=== PATIENT | female | born 1960 | race Caucasian/White ===

== ENCOUNTER → 2020-07-11 | Outpatient (CLI) | payer MEDICARE, OTHER | LOC: RAD 17:22 | DX: M25.552 Pain in left hip (principal); M79.652 Pain in left thigh | CPT/HCPCS: 73502; 73552 ==

== ENCOUNTER → 2020-07-28 | Outpatient (CLI) | payer MEDICARE, OTHER | LOC: HEART 5 07:58 | DX: I25.10 Atherosclerotic heart disease of native coronary artery without angina pectoris (principal); R07.9 Chest pain, unspecified; R94.39 Abnormal result of other cardiovascular function study | CPT/HCPCS: 78452; A9502; J2785 ==

== ENCOUNTER 2020-09-21 09:03 | Emergency (ER) | payer MEDICARE, OTHER ==
[2020-09-21 09:53] LABS: HEMOGLOBIN 12.6 gm/dl (12.3-15.3); RED BLOOD COUNT 3.97 M/UL (4.00-5.10); WHITE BLOOD COUNT 6.4 K/UL (4.5-11.0)
[2020-09-21 10:32] LABS: BUN/CREATININE RATIO 28 (0-10)
[2020-09-22 09:14] LABS: HBSAG SCREEN Negative (Negative); HEP A AB, IGM Negative (Negative); HEP B CORE AB, IGM Negative (Negative); HEP C VIRUS AB <0.1 (0.0-0.9)
== END 2020-09-21 13:01 | disposition home or self-care (01) ==
LOC: ER1 09:03
PROVIDERS: Emergency Medicine
DX: S06.0X9A Concussion with loss of consciousness of unspecified duration, initial encounter (principal); D69.6 Thrombocytopenia, unspecified; R16.2 Hepatomegaly with splenomegaly, not elsewhere classified; E11.9 Type 2 diabetes mellitus without complications; I10 Essential (primary) hypertension; K21.9 Gastro-esophageal reflux disease without esophagitis; I25.10 Atherosclerotic heart disease of native coronary artery without angina pectoris; Z95.1 Presence of aortocoronary bypass graft; Z90.49 Acquired absence of other specified parts of digestive tract; Z90.710 Acquired absence of both cervix and uterus; F17.200 Nicotine dependence, unspecified, uncomplicated; W19.XXXA Unspecified fall, initial encounter
CPT/HCPCS: 70450; 71045; 80053; 80074; 81001; 82550; 82553; 83735; 83874; 84484; 85025; 87086; 93005; 99284

== ENCOUNTER 2020-11-29 12:01 | Inpatient (IN) | payer MEDICARE ==
[~2020-11-29] VITALS: Ht 160 cm; Wt 92.5 kg
[~2020-11-29 12:01] MED LIST: HYDROCODON-ACE1 EAC4 PO; VALACYCLOVIR1000 MG PO
[2020-11-29 14:55] LABS: HEMOGLOBIN 12.7 gm/dl (12.3-15.3); RED BLOOD COUNT 3.77 M/UL (4.00-5.10); WHITE BLOOD COUNT 11.4 K/UL (4.5-11.0)
[2020-11-29 15:37] LABS: BUN/CREATININE RATIO 23 (0-10)
[2020-11-30 04:08] LABS: HEMOGLOBIN 11.8 gm/dl (12.3-15.3); RED BLOOD COUNT 3.57 M/UL (4.00-5.10); WHITE BLOOD COUNT 11.3 K/UL (4.5-11.0)
[2020-11-30 04:26] LABS: BUN/CREATININE RATIO 23 (0-10)
[2020-11-30] MEDS ORDERED: NITROSTAT0.4 MG SL (11:46)
[2020-11-30] MEDS ORDERED: METFORMIN HCL500 M2 PO (11:46)
[2020-11-30] MEDS ORDERED: GLYBURIDE5 MG PO (11:46)
[2020-11-30] MEDS ORDERED: FERROUS SULFAT325 M2 PO (11:47)
[2020-11-30] MEDS ORDERED: AMLODIPINE BESYL5 MG PO (11:47)
[2020-11-30] MEDS ORDERED: BACLOFEN10 MG PO (11:47)
[2020-11-30] MEDS ORDERED: GABAPENTIN100 MG PO (11:48)
[2020-11-30] MEDS ORDERED: PROTONIX40 MG PO (11:49)
[2020-11-30] MEDS ORDERED: MELOXICAM15 MG PO (11:49)
[2020-11-30] MEDS ORDERED: PRAVASTATIN SOD80 MG PO (11:49)
[2020-11-30] MEDS ORDERED: ABILIFY2 MG PO (11:50)
[2020-11-30] MEDS ORDERED: MIRTAZAPINE30 MG PO (11:52)
[2020-11-30] MEDS ORDERED: BUSPIRONE HCL5 MG PO (11:52)
[2020-11-30] MEDS ORDERED: FUROSEMIDE20 MG PO (11:56)
[2020-11-30] MEDS ORDERED: VENLAFAXINE HC150 MG PO (11:56)
[2020-11-30] MEDS ORDERED: IRBESARTAN300 MG PO (11:57)
[2020-11-30] MEDS ORDERED: ISOSORBIDE MONO30 MG PO (11:57)
[2020-11-30] MEDS ORDERED: METOPROLOL TART25 MG PO (11:58)
[2020-11-30] MEDS ORDERED: POTASSIUM CHLO10 MEQ PO (11:58)
[2020-11-30] MEDS ORDERED: DONEPEZIL HCL5 MG PO (11:59)
[2020-11-30] MEDS ORDERED: NOVOLOG FL100 UNIT/1 SC (12:00)
[2020-11-30] MEDS ORDERED: NOVOLIN N100 UNIT/2 SC (12:02)
[2020-11-30] MEDS ORDERED: DAILY VALUE1 EACH PO (12:02)
[2020-11-30] MEDS ORDERED: ASPIRIN EC81 MG PO (12:03)
[2020-12-01 07:37] LABS: RED BLOOD COUNT 3.71 M/UL (4.00-5.10); WHITE BLOOD COUNT 13.2 K/UL (4.5-11.0)
[2020-12-01 07:57] LABS: BUN/CREATININE RATIO 17 (0-10)
[2020-12-01 15:53] LABS: BUN/CREATININE RATIO 18 (0-10)
[2020-12-02 04:28] LABS: RED BLOOD COUNT 3.36 M/UL (4.00-5.10)
[2020-12-02 04:37] LABS: WHITE BLOOD COUNT 16.7 K/UL (4.5-11.0)
[2020-12-03 08:30] LABS: RED BLOOD COUNT 3.46 M/UL (4.00-5.10)
[2020-12-03 08:41] LABS: WHITE BLOOD COUNT 9.5 K/UL (4.5-11.0)
[2020-12-03 08:51] LABS: BUN/CREATININE RATIO 28 (0-10)
[2020-12-04 06:39] LABS: HEMOGLOBIN 10.2 gm/dl (12.3-15.3); RED BLOOD COUNT 3.27 M/UL (4.00-5.10); WHITE BLOOD COUNT 10.8 K/UL (4.5-11.0)
[2020-12-05 06:30] LABS: HEMOGLOBIN 10.5 gm/dl (12.3-15.3); RED BLOOD COUNT 3.35 M/UL (4.00-5.10); WHITE BLOOD COUNT 9.3 K/UL (4.5-11.0)
[2020-12-06 08:26] LABS: HEMOGLOBIN 9.9 gm/dl (12.3-15.3); RED BLOOD COUNT 3.2 M/UL (4.00-5.10)
[2020-12-06 08:28] LABS: WHITE BLOOD COUNT 5.8 K/UL (4.5-11.0)
[2020-12-07 04:45] LABS: HEMOGLOBIN 9.4 gm/dl (12.3-15.3); RED BLOOD COUNT 2.99 M/UL (4.00-5.10); WHITE BLOOD COUNT 5.6 K/UL (4.5-11.0)
[2020-12-07 05:11] LABS: HBSAG SCREEN Negative (Negative); HEP A AB, IGM Negative (Negative); HEP B CORE AB, IGM Negative (Negative); HEP C VIRUS AB 0.1 (0.0-0.9)
--- NOTE | 2020-12-07 15:48 | NUR ---
[id number] Serra regarding IAN Drain to surgical wound to left arm. Stated to leave drain in since it was continuing to have drainage.
[2020-12-08 07:59] LABS: HEMOGLOBIN 9.2 gm/dl (12.3-15.3); RED BLOOD COUNT 2.93 M/UL (4.00-5.10); WHITE BLOOD COUNT 4.2 K/UL (4.5-11.0)
--- NOTE | 2020-12-09 06:33 | NUR ---
Pt found with a new rapid advancing petechiea. Was not found on pt the night before. Notified Dr. Ramirez and ask him to come look at her. When he finally answered back he said to just hold all blood thinners and aspirin. Pt has an area covering bilateral buttocks, bilateral feet and legs. Will report to dayshift and ask that the hospitalist assess the areas today. Will hold all blood thinner or aspirin.
[2020-12-09 07:00] LABS: HEMOGLOBIN 9.4 gm/dl (12.3-15.3); RED BLOOD COUNT 2.96 M/UL (4.00-5.10); WHITE BLOOD COUNT 4.2 K/UL (4.5-11.0)
[2020-12-10 06:32] LABS: HEMOGLOBIN 9.7 gm/dl (12.3-15.3); RED BLOOD COUNT 3.04 M/UL (4.00-5.10)
[2020-12-10 06:36] LABS: WHITE BLOOD COUNT 7.3 K/UL (4.5-11.0)
[2020-12-11 06:36] LABS: HEMOGLOBIN 8.7 gm/dl (12.3-15.3); RED BLOOD COUNT 2.78 M/UL (4.00-5.10); WHITE BLOOD COUNT 7.9 K/UL (4.5-11.0)
[2020-12-11 09:08] LABS: ANTISTREPTOLYSIN O AB 302.9 IU/mL (0.0-200.0); COMPLEMENT C3, SERUM 94 mg/dL (82-167); COMPLEMENT C4, SERUM 9 mg/dL (12-38)
--- NOTE | 2020-12-11 15:42 | NUR ---
SPOKE WITH PHARMACIST ABOUT PATIENT VANC ORDER, LEVEL WAS 19.5 BUT WILL HOLD TODAY AND CHECK TOMORROW.
--- NOTE | 2020-12-11 23:56 | NUR ---
PT STATES THAT SHE IS LEAVING, SHE HAS ALL HER BELONGINGS PACKED, AND STATES SHE HAS CALLED HER BROTHER IN LAW TO COME GET HER. I TRY TALKING WITH PT TO STAY TILL IN THE MORNING AND SHE STATES NOTHING WILL KEEP HER HERE. IV WAS D/C BEFORE LEAVING PT TOLERATED WELL. NOTIFIED HOUSE AND DR HUI OF ABOVE. PT WAS ALSO NOTIFIED THAT THE INSURANCE MAY NOT PAY BILL IF SHE LEAVES AMA. PT STATES SHE DIDNT CARE SHE HAD INHERITED 300,000. PT SIGNED AMA FORM. PT WAS GIVEN A MASK, AND PT WAS PLACED IN WHEELCHAIR BY TECH AND TOOK TO MEET RIDE.
[2020-12-12 00:09] LABS: CREATININE, URINE 113.7 mg/dL (Not Estab.)
[2020-12-12 14:10] LABS: ANTI-DSDNA ANTIBODIES <1 IU/mL (0-9)
[2020-12-12 16:10] LABS: A/G RATIO 0.5 (0.7-1.7); ALBUMIN 2.1 g/dL (2.9-4.4); ALPHA-1-GLOBULIN 0.3 g/dL (0.0-0.4); ALPHA-2-GLOBULIN 0.6 g/dL (0.4-1.0); BETA GLOBULIN 1.8 g/dL (0.7-1.3); GAMMA GLOBULIN 2.1 g/dL (0.4-1.8); GLOBULIN, TOTAL 4.8 g/dL (2.2-3.9); IMMUNOGLOBULIN A, QN, SERUM 1435 mg/dL (87-352); IMMUNOGLOBULIN G, QN, SERUM 2092 mg/dL (586-1602); IMMUNOGLOBULIN M, QN, SERUM 93 mg/dL (26-217); M-SPIKE 0.7 g/dL (Not Observed); PROTEIN, TOTAL, SERUM 6.9 g/dL (6.0-8.5)
[2020-12-13 13:14] LABS: ANTIHISTONE ANTIBODIES 0.9 Units (0.0-0.9)
[2020-12-14 08:13] LABS: ANTIMYELOPEROXIDASE (MPO) ABS <9.0 U/mL (0.0-9.0); ANTIPROTEINASE 3 (PR-3) ABS 12.5 U/mL (0.0-3.5); ATYPICAL PANCA >1:640 titer (Neg:<1:20); CYTOPLASMIC (C-ANCA) <1:20 titer (Neg:<1:20); PERINUCLEAR (P-ANCA) <1:20 titer (Neg:<1:20)
== END 2020-12-11 22:48 | disposition left against medical advice (07) | DRG 853 ==
LOC: ER1 12:01 → CDU 17:27 → MED SURG 4 17:27
PROVIDERS: Internal Medicine; Internal Medicine Nephrology; Physician Assistant; Physician Assistant Medical; Surgery; ADMIT Internal Medicine
PROC: 0H9CXZZ Drainage of Left Upper Arm Skin, External Approach (ICD-10-PCS; 2020-12-01)
PROC: B24BZZ4 Ultrasonography of Heart with Aorta, Transesophageal (ICD-10-PCS; 2020-12-04)
PROC: 0J960ZZ Drainage of Chest Subcutaneous Tissue and Fascia, Open Approach (ICD-10-PCS; principal; 2020-12-09 07:30)
PROC: 0JB60ZZ Excision of Chest Subcutaneous Tissue and Fascia, Open Approach (ICD-10-PCS; principal; 2020-12-09 07:30)
DX: A41.9 Sepsis, unspecified organism (principal); J18.9 Pneumonia, unspecified organism; Z20.822 Contact with and (suspected) exposure to COVID-19; G92 Toxic encephalopathy; L03.114 Cellulitis of left upper limb; N17.9 Acute kidney failure, unspecified; L02.414 Cutaneous abscess of left upper limb; E87.1 Hypo-osmolality and hyponatremia; E87.2 Acidosis; R65.20 Severe sepsis without septic shock; R22.2 Localized swelling, mass and lump, trunk; E11.9 Type 2 diabetes mellitus without complications; R23.3 Spontaneous ecchymoses; I10 Essential (primary) hypertension; E78.5 Hyperlipidemia, unspecified; F41.1 Generalized anxiety disorder; E86.0 Dehydration; E66.9 Obesity, unspecified; E80.6 Other disorders of bilirubin metabolism; I08.1 Rheumatic disorders of both mitral and tricuspid valves; F32.9 Major depressive disorder, single episode, unspecified; W18.39XA Other fall on same level, initial encounter; R29.6 Repeated falls; Z95.1 Presence of aortocoronary bypass graft; Z79.4 Long term (current) use of insulin; Z90.710 Acquired absence of both cervix and uterus; Z90.49 Acquired absence of other specified parts of digestive tract; Z82.49 Family history of ischemic heart disease and other diseases of the circulatory system; Z83.3 Family history of diabetes mellitus; Z88.2 Allergy status to sulfonamides; Z88.6 Allergy status to analgesic agent; Z88.1 Allergy status to other antibiotic agents; Z91.040 Latex allergy status; Z68.37 Body mass index [BMI] 37.0-37.9, adult
CPT/HCPCS: ECHO; 36415; 36600; 70450; 71045; 73030; 73060; 73201; 73220; 80048; 80053; 80074; 80202; 81001; 82043; 82140; 82436; 82533; 82570; 82607; 82784; 82803; 82962; 83036; 83520; 83605; 83735; 83880; 83883; 83935; 84133; 84155; 84156; 84165; 84295; 84300; 84439; 84443; 84484; 85025; 85027; 85610; 85652; 86038; 86060; 86140; 86160; 86225; 86256; 86334; 87040; 87070; 87077; 87186; 87205; 93005; 93306; 93971; 94760; 99283; 99285; A9577; J0690; J0692; J1100; J1170; J1650; J2001; J2250; J2370; J2405; J2704; J3010; J3370; J7030; J7070; J7120; P9047; Q9967; U0002

== ENCOUNTER → 2020-12-15 | Outpatient (CLI) | payer MEDICARE ==
[~2020-12-15] MED LIST changes: +ABILIFY2 MG PO; +AMLODIPINE BESYL5 MG PO; +ASPIRIN EC81 MG PO; +BACLOFEN10 MG PO; +BUSPIRONE HCL5 MG PO; +DAILY VALUE1 EACH PO; +DONEPEZIL HCL5 MG PO; +FERROUS SULFAT325 M2 PO; +FUROSEMIDE20 MG PO; +GABAPENTIN100 MG PO; +GLYBURIDE5 MG PO; +IRBESARTAN300 MG PO; +ISOSORBIDE MONO30 MG PO; +MELOXICAM15 MG PO; +METFORMIN HCL500 M2 PO; +METOPROLOL TART25 MG PO; +MIRTAZAPINE30 MG PO; +NITROSTAT0.4 MG SL; +NOVOLIN N100 UNIT/2 SC; +NOVOLOG FL100 UNIT/1 SC; +POTASSIUM CHLO10 MEQ PO; +PRAVASTATIN SOD80 MG PO; +PROTONIX40 MG PO; +VENLAFAXINE HC150 MG PO
== END ==
LOC: LAB 11:40
DX: R60.1 Generalized edema (principal)
CPT/HCPCS: 36415; 80053; 82140

== ENCOUNTER → 2021-02-01 | Outpatient (CLI) | payer MEDICARE | LOC: EXRD 01-16 08:30 | DX: R94.5 Abnormal results of liver function studies (principal); R93.2 Abnormal findings on diagnostic imaging of liver and biliary tract | CPT/HCPCS: 76705 ==

== ENCOUNTER → 2021-02-07 | Outpatient (CLI) | payer MEDICARE ==
[~2021-02-07] MED LIST changes: +DOXYCYCLINE HY100 M2 PO
== END ==
LOC: RAD 10:38
DX: M25.512 Pain in left shoulder (principal); M19.011 Primary osteoarthritis, right shoulder; M79.89 Other specified soft tissue disorders
CPT/HCPCS: 73030

== ENCOUNTER 2021-02-08 14:23 | Observation (INO) | payer MEDICARE ==
[~2021-02-08] VITALS: Ht 160 cm; Wt 82.1 kg
[~2021-02-08 14:23] MED LIST changes: -DOXYCYCLINE HY100 M2 PO
[2021-02-08 16:51] LABS: HEMOGLOBIN 12.2 gm/dl (12.3-15.3); RED BLOOD COUNT 3.83 M/UL (4.00-5.10); WHITE BLOOD COUNT 8.9 K/UL (4.5-11.0)
[2021-02-09 03:56] LABS: HEMOGLOBIN 11.6 gm/dl (12.3-15.3); RED BLOOD COUNT 3.68 M/UL (4.00-5.10); WHITE BLOOD COUNT 7.1 K/UL (4.5-11.0)
[2021-02-09] MEDS ORDERED: DOXYCYCLINE HY100 M2 PO (12:03)
== END 2021-02-09 13:00 | disposition home or self-care (01) ==
LOC: ER1 14:23 → CDU 23:23
PROVIDERS: Internal Medicine; Physician Assistant Medical; ADMIT Internal Medicine
DX: E11.628 Type 2 diabetes mellitus with other skin complications (principal); L02.414 Cutaneous abscess of left upper limb; E87.1 Hypo-osmolality and hyponatremia; E87.6 Hypokalemia; E11.65 Type 2 diabetes mellitus with hyperglycemia; I12.9 Hypertensive chronic kidney disease with stage 1 through stage 4 chronic kidney disease, or unspecified chronic kidney disease; E11.22 Type 2 diabetes mellitus with diabetic chronic kidney disease; N18.30 Chronic kidney disease, stage 3 unspecified; E78.5 Hyperlipidemia, unspecified; D69.6 Thrombocytopenia, unspecified; I25.10 Atherosclerotic heart disease of native coronary artery without angina pectoris; F17.210 Nicotine dependence, cigarettes, uncomplicated; Z20.822 Contact with and (suspected) exposure to COVID-19; Z95.1 Presence of aortocoronary bypass graft; Z88.2 Allergy status to sulfonamides; Z88.5 Allergy status to narcotic agent; Z88.8 Allergy status to other drugs, medicaments and biological substances; Z91.040 Latex allergy status; Z86.14 Personal history of Methicillin resistant Staphylococcus aureus infection; Z79.82 Long term (current) use of aspirin; Z79.4 Long term (current) use of insulin; Z79.899 Other long term (current) drug therapy
CPT/HCPCS: 73030; 73201; 80048; 80053; 82962; 85025; 85652; 86140; 87040; 87070; 87077; 87186; 87205; 99285; G0378; J3370; J7050; Q9967; U0002

== ENCOUNTER 2021-02-24 13:03 | Emergency (ER) | payer MEDICARE, OTHER ==
[~2021-02-24] VITALS: Ht 154.9 cm; Wt 93.0 kg
[~2021-02-24 13:03] MED LIST changes: +DOXYCYCLINE HY100 M2 PO
[2021-02-24 13:48] LABS: RED BLOOD COUNT 3.84 M/UL (4.00-5.10); WHITE BLOOD COUNT 7.7 K/UL (4.5-11.0)
[2021-02-24 14:15] LABS: BUN/CREATININE RATIO 17 (0-10)
== END 2021-02-24 20:40 | disposition short-term general hospital (02) ==
LOC: ER1 13:03
PROVIDERS: Student in an Organized Health Care Education/Training Program
DX: G93.40 Encephalopathy, unspecified (principal); I12.9 Hypertensive chronic kidney disease with stage 1 through stage 4 chronic kidney disease, or unspecified chronic kidney disease; N18.30 Chronic kidney disease, stage 3 unspecified; I25.10 Atherosclerotic heart disease of native coronary artery without angina pectoris; E78.5 Hyperlipidemia, unspecified; E11.22 Type 2 diabetes mellitus with diabetic chronic kidney disease; Z20.822 Contact with and (suspected) exposure to COVID-19; Z90.710 Acquired absence of both cervix and uterus; Z95.1 Presence of aortocoronary bypass graft; Z88.2 Allergy status to sulfonamides
CPT/HCPCS: 36600; 70450; 71045; 80053; 80307; 81001; 82140; 82550; 82553; 82803; 83605; 83874; 84484; 85025; 87040; 87086; 96374; 96375; 99285; J2185; J3370; J7030; J7070; U0002

== ENCOUNTER → 2021-02-28 | Outpatient (CLI) | payer MEDICARE, OTHER | LOC: MRI 12:43 | DX: K83.1 Obstruction of bile duct (principal); R18.8 Other ascites | CPT/HCPCS: 74181 ==

== ENCOUNTER → 2021-03-13 | Outpatient (CLI) | payer MEDICARE ==
[~2021-03-13] MED LIST changes: +DIABETA 5 MG TAB5 MG PO
== END ==
LOC: LAB 11:00
PROVIDERS: Internal Medicine Gastroenterology
DX: K70.31 Alcoholic cirrhosis of liver with ascites (principal)
CPT/HCPCS: 36415; 80048; 80076; 85610

== ENCOUNTER → 2021-03-22 | Outpatient (CLI) | payer MEDICARE ==
[2021-03-23 07:12] LABS: A/G RATIO 0.8 (1.2-2.2); ALKALINE PHOSPHATASE, S 191 IU/L (44-121); ALT (SGPT) 24 IU/L (0-32); AST (SGOT) 40 IU/L (0-40); BILIRUBIN, TOTAL 1.5 mg/dL (0.0-1.2); BUN 14 mg/dL (8-27); BUN/CREATININE RATIO 12 (12-28); CALCIUM, SERUM 9.2 mg/dL (8.7-10.3); CARBON DIOXIDE, TOTAL 25 mmol/L (20-29); CHLORIDE, SERUM 97 mmol/L (96-106); CREATININE, SERUM 1.14 mg/dL (0.57-1.00); EGFR IF AFRICN AM 60 (>59); EGFR IF NONAFRICN AM 52 (>59); GLOBULIN, TOTAL 4.3 g/dL (1.5-4.5); GLUCOSE, SERUM 383 mg/dL (65-99); POTASSIUM, SERUM 4.1 mmol/L (3.5-5.2); PROTEIN, TOTAL, SERUM 7.9 g/dL (6.0-8.5); SODIUM, SERUM 139 mmol/L (134-144)
[2021-03-23 08:13] LABS: MAGNESIUM 1.7 mg/dL (1.6-2.3)
[2021-03-24 12:13] LABS: ATYPICAL PANCA <1:20 titer (Neg:<1:20); CYTOPLASMIC (C-ANCA) <1:20 titer (Neg:<1:20)
== END ==
LOC: LAB 12:39
PROVIDERS: Internal Medicine Nephrology
DX: N17.9 Acute kidney failure, unspecified (principal); E87.6 Hypokalemia
CPT/HCPCS: 36415; 80053; 82570; 83735; 84156; 86256

== ENCOUNTER 2021-04-19 12:22 | Emergency (ER) | payer MEDICARE | END 2021-04-19 17:35 | disposition home or self-care (01) | LOC: ER1 12:22 | DX: M79.661 Pain in right lower leg (principal); M79.671 Pain in right foot; I25.10 Atherosclerotic heart disease of native coronary artery without angina pectoris; I12.9 Hypertensive chronic kidney disease with stage 1 through stage 4 chronic kidney disease, or unspecified chronic kidney disease; N18.9 Chronic kidney disease, unspecified; E11.22 Type 2 diabetes mellitus with diabetic chronic kidney disease; F17.200 Nicotine dependence, unspecified, uncomplicated; Z95.1 Presence of aortocoronary bypass graft | CPT/HCPCS: 73590; 73610; 93971; 99284 ==

== ENCOUNTER 2021-04-26 08:01 | Emergency (ER) | payer MEDICARE ==
[~2021-04-26 08:01] MED LIST changes: -DIABETA 5 MG TAB5 MG PO; -FERROUS SULFAT325 M2 PO; -METOPROLOL TART25 MG PO; -VENLAFAXINE HC150 MG PO
[2021-04-26 09:02] LABS: HEMOGLOBIN 10.8 gm/dl (12.3-15.3); RED BLOOD COUNT 3.46 M/UL (4.00-5.10); WHITE BLOOD COUNT 8.5 K/UL (4.5-11.0)
[2021-04-26] MEDS ORDERED: CEPHALEXIN500 M1 PO (13:17)
[2021-04-28] MEDS ORDERED: DIABETA 5 MG TAB5 MG PO (07:07)
[2021-04-28] MEDS ORDERED: FERROUS SULFAT325 M2 PO (11:47)
[2021-04-28] MEDS ORDERED: VENLAFAXINE HC150 MG PO (11:56)
[2021-04-28] MEDS ORDERED: METOPROLOL TART25 MG PO (11:58)
== END 2021-04-26 13:50 | disposition home or self-care (01) ==
LOC: ER1 08:01
PROVIDERS: Emergency Medicine
DX: N39.0 Urinary tract infection, site not specified (principal); E11.65 Type 2 diabetes mellitus with hyperglycemia; E86.0 Dehydration; R25.1 Tremor, unspecified; Z20.822 Contact with and (suspected) exposure to COVID-19
CPT/HCPCS: 0240U; 70450; 80053; 81001; 82140; 82550; 82553; 82962; 83735; 83874; 84484; 85025; 85610; 85730; 93005; 96374; 96375; 96376; 99285; J0696

== ENCOUNTER 2021-04-28 12:46 | Inpatient (IN) | payer MEDICARE ==
[~2021-04-28] VITALS: Ht 160 cm; Wt 81.6 kg
[~2021-04-28 12:46] MED LIST changes: +CEPHALEXIN500 M1 PO; +DIABETA 5 MG TAB5 MG PO; +FERROUS SULFAT325 M2 PO; +METOPROLOL TART25 MG PO; +VENLAFAXINE HC150 MG PO
[2021-04-28 13:52] LABS: HEMOGLOBIN 10.5 gm/dl (12.3-15.3); RED BLOOD COUNT 3.4 M/UL (4.00-5.10); WHITE BLOOD COUNT 10.3 K/UL (4.5-11.0)
[2021-04-28 14:16] LABS: BUN/CREATININE RATIO 19 (0-10)
[2021-04-28] MEDS ORDERED: FLUCONAZOLE100 MG PO (19:11)
[2021-04-28] MEDS ORDERED: JANUVIA100 MG PO (19:11)
[2021-04-28] MEDS ORDERED: LACTULOSE10 GM/15 M PO (19:12)
[2021-04-28] MEDS ORDERED: MOBIC15 MG PO (19:12)
[2021-04-29 02:36] LABS: HEMOGLOBIN 9.8 gm/dl (12.3-15.3); RED BLOOD COUNT 3.21 M/UL (4.00-5.10); WHITE BLOOD COUNT 11.2 K/UL (4.5-11.0)
[2021-04-30 05:38] LABS: HEMOGLOBIN 10.1 gm/dl (12.3-15.3); RED BLOOD COUNT 3.3 M/UL (4.00-5.10)
[2021-04-30 05:39] LABS: WHITE BLOOD COUNT 8.3 K/UL (4.5-11.0)
[2021-05-01 05:32] LABS: HEMOGLOBIN 10.1 gm/dl (12.3-15.3); RED BLOOD COUNT 3.29 M/UL (4.00-5.10); WHITE BLOOD COUNT 7.3 K/UL (4.5-11.0)
[2021-05-01] MEDS ORDERED: AMOXICILLIN500 MG PO (15:28)
[2021-05-02] MEDS ORDERED: TYLENOL 8 HOUR650 MG PO (10:56)
--- NOTE | 2021-05-02 12:46 | NUR ---
REPOR CALLED TO BONY VALENCIA AT [facility]. SHE VERBALIZED UNDERSTADING OF PLAN OF CARE.
== END 2021-05-02 12:42 | disposition home health service (06) | DRG 682 ==
LOC: ER1 12:46 → M/S 15:31 → CDU 15:31 → 3 EAST 04-29 00:31 → M/S 04-29 13:41
PROVIDERS: Emergency Medicine; Physician Assistant; Physician Assistant Medical; ADMIT Internal Medicine
DX: N17.9 Acute kidney failure, unspecified (principal); G93.41 Metabolic encephalopathy; J18.9 Pneumonia, unspecified organism; Z20.822 Contact with and (suspected) exposure to COVID-19; I50.32 Chronic diastolic (congestive) heart failure; I13.0 Hypertensive heart and chronic kidney disease with heart failure and stage 1 through stage 4 chronic kidney disease, or unspecified chronic kidney disease; N30.00 Acute cystitis without hematuria; D63.1 Anemia in chronic kidney disease; E86.0 Dehydration; M19.90 Unspecified osteoarthritis, unspecified site; F41.1 Generalized anxiety disorder; F32.A Depression, unspecified; R29.6 Repeated falls; E11.65 Type 2 diabetes mellitus with hyperglycemia; I25.10 Atherosclerotic heart disease of native coronary artery without angina pectoris; E78.5 Hyperlipidemia, unspecified; B95.2 Enterococcus as the cause of diseases classified elsewhere; D69.6 Thrombocytopenia, unspecified; K74.60 Unspecified cirrhosis of liver; M79.661 Pain in right lower leg; E11.42 Type 2 diabetes mellitus with diabetic polyneuropathy; E11.22 Type 2 diabetes mellitus with diabetic chronic kidney disease; N18.30 Chronic kidney disease, stage 3 unspecified; Z79.2 Long term (current) use of antibiotics; Z79.01 Long term (current) use of anticoagulants; Z79.82 Long term (current) use of aspirin; Z79.4 Long term (current) use of insulin; Z95.1 Presence of aortocoronary bypass graft; Z90.49 Acquired absence of other specified parts of digestive tract; Z90.710 Acquired absence of both cervix and uterus; Z88.2 Allergy status to sulfonamides; Z91.040 Latex allergy status; Z82.49 Family history of ischemic heart disease and other diseases of the circulatory system; Z83.3 Family history of diabetes mellitus
CPT/HCPCS: 0240U; 36415; 70450; 71045; 73590; 80048; 80053; 80202; 81001; 82140; 82550; 82553; 82962; 83036; 83605; 83735; 83874; 83880; 84484; 85025; 85027; 85610; 85730; 87040; 87077; 87086; 87186; 93005; 94640; 94664; 94760; 96374; 96375; 96376; 97110; 97116-GP-CQ; 97161; 97166; 97530-GP-CQ; 99285; J0456; J0696; J3370; J7030; J7070

== ENCOUNTER 2021-05-04 09:19 | Emergency (ER) | payer MEDICARE ==
[~2021-05-04 09:19] MED LIST changes: +AMOXICILLIN500 MG PO; +FLUCONAZOLE100 MG PO; +JANUVIA100 MG PO; +LACTULOSE10 GM/15 M PO; +MOBIC15 MG PO; +TYLENOL 8 HOUR650 MG PO
[2021-05-04 10:56] LABS: HEMOGLOBIN 10.2 gm/dl (12.3-15.3); RED BLOOD COUNT 3.23 M/UL (4.00-5.10); WHITE BLOOD COUNT 7.2 K/UL (4.5-11.0)
== END 2021-05-04 16:32 | disposition home or self-care (01) ==
LOC: ER1 09:19
PROVIDERS: Family Medicine
DX: R40.0 Somnolence (principal); I25.10 Atherosclerotic heart disease of native coronary artery without angina pectoris; N18.9 Chronic kidney disease, unspecified; E11.40 Type 2 diabetes mellitus with diabetic neuropathy, unspecified; F17.200 Nicotine dependence, unspecified, uncomplicated; E11.22 Type 2 diabetes mellitus with diabetic chronic kidney disease; D64.9 Anemia, unspecified
CPT/HCPCS: 70450; 80048; 80076; 81001; 82140; 85025; 99284; G0480

== ENCOUNTER 2021-05-24 12:57 | Inpatient (IN) | payer MEDICARE ==
[~2021-05-24] VITALS: Ht 160 cm; Wt 80.3 kg
[~2021-05-24 12:57] MED LIST changes: -NOVOLIN N100 UNIT/2 SC; +NOVOLIN N100 UNIT/2 SQ
[2021-05-24 13:56] LABS: HEMOGLOBIN 10.7 gm/dl (12.3-15.3); RED BLOOD COUNT 3.49 M/UL (4.00-5.10)
[2021-05-24] MEDS ORDERED: HYDROCODON-ACE1 EAC4 PO (16:51)
[2021-05-24] MEDS ORDERED: POTASSIUM CHLO10 MEQ PO (16:51)
[2021-05-24] MEDS ORDERED: PROTONIX 40 MG40 M1 PO (16:52)
[2021-05-24] MEDS ORDERED: METFORMIN HCL500 M2 PO (16:52)
[2021-05-24] MEDS ORDERED: MELOXICAM15 MG PO (16:52)
[2021-05-25 05:09] LABS: HEMOGLOBIN 9.4 gm/dl (12.3-15.3); WHITE BLOOD COUNT 6.6 K/UL (4.5-11.0)
[2021-05-25 05:13] LABS: RED BLOOD COUNT 3.03 M/UL (4.00-5.10)
--- NOTE | 2021-05-25 14:51 | NUR ---
05/25/21 1445 REPORT CALLED TO AUBREY KRAMER RN TO BE TRANSFERRED TO ROOM 410
[2021-05-26 04:42] LABS: HEMOGLOBIN 9.2 gm/dl (12.3-15.3); RED BLOOD COUNT 2.99 M/UL (4.00-5.10); WHITE BLOOD COUNT 8.1 K/UL (4.5-11.0)
[2021-05-27 09:32] LABS: HEMOGLOBIN 9.3 gm/dl (12.3-15.3); RED BLOOD COUNT 2.97 M/UL (4.00-5.10); WHITE BLOOD COUNT 8.6 K/UL (4.5-11.0)
[2021-05-28 09:02] LABS: HEMOGLOBIN 8.3 gm/dl (12.3-15.3); RED BLOOD COUNT 2.65 M/UL (4.00-5.10); WHITE BLOOD COUNT 6.1 K/UL (4.5-11.0)
[2021-05-29 06:09] LABS: HEMOGLOBIN 7.6 gm/dl (12.3-15.3); RED BLOOD COUNT 2.47 M/UL (4.00-5.10); WHITE BLOOD COUNT 4.6 K/UL (4.5-11.0)
--- NOTE | 2021-05-29 16:16 | NUR ---
SPOKE WITH DR ASHTON AT THIS TIME. HE STATES THAT IF THE WOUND STILL HAS A LOT OF PURULENT DRIANAGE AT THIS TIME TO NOT PUT WOUND VAC ON AND JUST PUT SALINE WET TO DRY DRESSING.
--- NOTE | 2021-05-29 17:34 | NUR ---
AFTER A WOUND ASSESSMENT A WET TO DRY DRESSING WAS PLACED PER PROVIDER ORDER. I CALLED DR ASHTON AND DISCUSSED WITH HIM MY FINDINGS DURING MY ASSESSMENT AND HE STATED TO DO WET TO DRY DRESSINGS FOR A FEW DAYS UNTIL THE PURULENT DRIANAGE CLEARS UP.
[2021-05-30 06:40] LABS: HEMOGLOBIN 7.6 gm/dl (12.3-15.3); RED BLOOD COUNT 2.43 M/UL (4.00-5.10); WHITE BLOOD COUNT 4.7 K/UL (4.5-11.0)
--- NOTE | 2021-05-30 14:19 | NUR ---
WET TO DRY DRESSING APPLIED PER PROVIDER ORDER, THAT WET TO DRY DRESSINGS CONTINUE FOR A FEW DAYS UNTIL PURULENT DRAINAGE HAS CLEARED UP AND WOUND VAC CAN THEN BE APPLIED. WILL CONTINUE TO MONITOR.
[2021-05-31 06:59] LABS: HEMOGLOBIN 7.2 gm/dl (12.3-15.3); RED BLOOD COUNT 2.3 M/UL (4.00-5.10)
[2021-05-31 12:30] LABS: HEMOGLOBIN 7.6 gm/dl (12.3-15.3)
[2021-06-01 03:39] LABS: HEMOGLOBIN 7.7 gm/dl (12.3-15.3); RED BLOOD COUNT 2.51 M/UL (4.00-5.10); WHITE BLOOD COUNT 4.2 K/UL (4.5-11.0)
[2021-06-01] MEDS ORDERED: DALVANCE500 MG IV (13:14)
== END 2021-06-01 16:12 | disposition home health service (06) | DRG 580 ==
LOC: ER1 12:57 → CDU 15:54 → CCU 18:17 → MED SURG 4 19:31
PROVIDERS: Internal Medicine Infectious Disease; Physician Assistant; Physician Assistant Medical; Preventive Medicine Occupational Medicine; Surgery; ADMIT Internal Medicine
PROC: 0K9S0ZZ Drainage of Right Lower Leg Muscle, Open Approach (ICD-10-PCS; principal; 2021-05-27 10:34)
DX: L02.415 Cutaneous abscess of right lower limb (principal); I13.0 Hypertensive heart and chronic kidney disease with heart failure and stage 1 through stage 4 chronic kidney disease, or unspecified chronic kidney disease; I50.32 Chronic diastolic (congestive) heart failure; R18.8 Other ascites; Z20.822 Contact with and (suspected) exposure to COVID-19; D62 Acute posthemorrhagic anemia; D61.818 Other pancytopenia; N30.00 Acute cystitis without hematuria; E87.1 Hypo-osmolality and hyponatremia; F17.210 Nicotine dependence, cigarettes, uncomplicated; G47.33 Obstructive sleep apnea (adult) (pediatric); I25.10 Atherosclerotic heart disease of native coronary artery without angina pectoris; F41.1 Generalized anxiety disorder; E83.42 Hypomagnesemia; F32.A Depression, unspecified; D69.6 Thrombocytopenia, unspecified; I87.8 Other specified disorders of veins; E11.51 Type 2 diabetes mellitus with diabetic peripheral angiopathy without gangrene; E78.5 Hyperlipidemia, unspecified; K76.0 Fatty (change of) liver, not elsewhere classified; K21.9 Gastro-esophageal reflux disease without esophagitis; E11.319 Type 2 diabetes mellitus with unspecified diabetic retinopathy without macular edema; L03.115 Cellulitis of right lower limb; K74.60 Unspecified cirrhosis of liver; Z96.653 Presence of artificial knee joint, bilateral; E11.42 Type 2 diabetes mellitus with diabetic polyneuropathy; B95.62 Methicillin resistant Staphylococcus aureus infection as the cause of diseases classified elsewhere; N18.30 Chronic kidney disease, stage 3 unspecified; E11.22 Type 2 diabetes mellitus with diabetic chronic kidney disease; Z74.01 Bed confinement status; E78.00 Pure hypercholesterolemia, unspecified; Z95.1 Presence of aortocoronary bypass graft; Z95.5 Presence of coronary angioplasty implant and graft; Z90.710 Acquired absence of both cervix and uterus; Z98.890 Other specified postprocedural states; Z82.49 Family history of ischemic heart disease and other diseases of the circulatory system; Z88.2 Allergy status to sulfonamides; Z88.8 Allergy status to other drugs, medicaments and biological substances; Z88.6 Allergy status to analgesic agent; Z91.040 Latex allergy status; Z90.49 Acquired absence of other specified parts of digestive tract; Z87.440 Personal history of urinary (tract) infections; I25.2 Old myocardial infarction
CPT/HCPCS: 36415; 71045; 73700; 80048; 80053; 80202; 81001; 82140; 82607; 82728; 82962; 83540; 83550; 83605; 83735; 85014; 85018; 85025; 85027; 85652; 86140; 87040; 87070; 87077; 87086; 87186; 87205; 93005; 93926; 93971; 96374; 99285; J0696; J1100; J1650; J1953; J1956; J2001; J2250; J2405; J2704; J3010; J3370; J3475; J7030; J7070; J7120; U0002

== ENCOUNTER → 2021-06-02 | Outpatient (CLI) | payer MEDICARE ==
[~2021-06-02] VITALS: Ht 160 cm; Wt 80.3 kg
[~2021-06-02] MED LIST changes: +DALVANCE500 MG IV; +PROTONIX 40 MG40 M1 PO
== END ==
LOC: OPSV 07:00
DX: L03.115 Cellulitis of right lower limb (principal); B95.62 Methicillin resistant Staphylococcus aureus infection as the cause of diseases classified elsewhere
CPT/HCPCS: 96365; J0875; J7070

== ENCOUNTER → 2021-06-09 | Outpatient (CLI) | payer MEDICARE ==
[~2021-06-09] VITALS: Ht 160 cm; Wt 80.3 kg
== END ==
LOC: OPSV 08:00
DX: L03.115 Cellulitis of right lower limb (principal)
CPT/HCPCS: 96365; J0875; J7070

== ENCOUNTER → 2021-09-11 | Outpatient (CLI) | payer MEDICARE | LOC: LAB 12:40 | PROVIDERS: Internal Medicine Nephrology | DX: N18.31 Chronic kidney disease, stage 3a (principal) | CPT/HCPCS: 36415; 80053; 82570; 84156 ==

== ENCOUNTER → 2021-10-19 | Outpatient (CLI) | payer MEDICARE | LOC: US 15:30 | DX: M79.661 Pain in right lower leg (principal) | CPT/HCPCS: 93971 ==

== ENCOUNTER → 2021-11-28 | Outpatient (CLI) | payer MEDICARE | LOC: LAB 11:17 | PROVIDERS: Internal Medicine Nephrology | DX: N18.31 Chronic kidney disease, stage 3a (principal) | CPT/HCPCS: 36415; 80048 ==

== ENCOUNTER → 2021-12-15 | Outpatient (CLI) | payer MEDICARE | LOC: LAB 11:42 | PROVIDERS: Internal Medicine Nephrology | DX: N18.31 Chronic kidney disease, stage 3a (principal) | CPT/HCPCS: 36415; 80053; 82570; 84156 ==

== ENCOUNTER → 2021-12-19 | Outpatient (CLI) | payer MEDICARE | LOC: KOH-I 15:00 | DX: G81.91 Hemiplegia, unspecified affecting right dominant side (principal); R51.9 Headache, unspecified | CPT/HCPCS: 70450 ==